=== PATIENT | male | born 1985 | race Hispanic/Latino ===

== ENCOUNTER 2018-12-06 04:48 | Inpatient (IN) | payer SELFPAY ==
[2018-12-06] MEDS ORDERED: ZOFRAN ONE (04:57)
[2018-12-06] MEDS ORDERED: NACL 0.9% 1000 ML 1,000 ML ONE ×2 (04:57→05:04)
[2018-12-06] MEDS ORDERED: ATIVAN ONE (04:57)
[2018-12-06] MEDS ORDERED: BENADRYL ONE (05:04)
[2018-12-06] MEDS ORDERED: ZOFRAN IV ONE (05:07)
[2018-12-06] MEDS ORDERED: NACL 0.9% 1000 ML 1,000 ML IV ONE ×3 (05:07→05:17)
[2018-12-06 05:22] LABS: Hematocrit 40.4 % (35.5-45.6); Mean Corpuscular HGB Conc 35 % (32-34); Mean Corpuscular Volume 86 fl (84-94); Platelet Count 340 K/mm3 (140-440); Red Cell Distribution Width 13.8 % (13.2-15.2)
[2018-12-06] MEDS ORDERED: BENADRYL IV ONE (05:22)
[2018-12-06] MEDS ORDERED: ATIVAN IV ONE ×2 (05:22→06:23)
[2018-12-06] MEDS ORDERED: ROCEPHIN/NS 2 GM/100 ML 2 GM/100 ML BAG IV ONE (05:23)
[2018-12-06] MEDS ORDERED: ZITHROMAX 500 MG in NACL 0.9% 250ML 250 ML IV ONE (05:24)
[2018-12-06 05:33] LABS: INR 1.11 (0.87-1.13)
[2018-12-06 05:43] LABS: Albumin 4.4 g/dL (3.9-5)
--- NOTE | 2018-12-06 06:08 | XRay Report ---
PROCEDURE: XR CHEST 1V AP TECHNIQUE: Chest radiograph single view. HISTORY: ams COMPARISONS: None . FINDINGS: No mediastinal shift. Cardiac silhouette is not enlarged. No pneumothorax, effusion, or focal pulmona ry opacity identified. No acute skeletal findings. IMPRESSION: No acute pulmonary finding identified. This document is electronically signed by Ronal Rodríguez MD., December 06 2018 06:06:39 AM ET
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
[2018-12-06 06:13] LABS: Benzodiazepines Screen,Urine PRESUMPTIVE NEGATIVE; Cocaine Screen,Urine PRESUMPTIVE NEGATIVE; Methadone Screen,Urine PRESUMPTIVE NEGATIVE; Opiate Screen,Urine PRESUMPTIVE NEGATIVE
[2018-12-06 06:15] LABS: Bacteria,Urine 3+ /HPF (Negative); Bilirubin,Urine NEG (Negative); Blood,Urine NEG (Negative); Color,Urine Amber (Yellow); Mucus,Urine 3+ /HPF; Sperm,Urine 1+ /HPF (NP)
[2018-12-06 06:25] LABS: Amphetamine Screen,Urine PRESUMPTIVE POSITIVE; Cannabinoid Screen,Urine PRESUMPTIVE POSITIVE
[2018-12-06 06:35] LABS: Basophils % (Manual) 0 % (0.0-1.8); Eosinophils % (Manual) 0 % (0.0-4.3); Platelet Estimate Consistent w Auto; RBC Morphology Normal; Total Cells Counted 100
--- NOTE | 2018-12-06 06:37 | Cat Scan Report ---
PROCEDURE: CT HEAD/BRAIN WO CON TECHNIQUE: Computerized tomography of the head was performed without contrast material. HISTORY: AMS COMPARISONS: None . FINDINGS: The ventricles, cisterns and sulci are within normal limits. No intra parenchymal or extra-axial mas s, hemorrhage, or mass effect. Javier and white-matter differentiation is within normal limits. Normal spherical shape of the globes. Paranasal sinuses and mastoid air cells are clear. No skull o r facial fracture visualized. IMPRESSION: No acute intracranial abnormality. This document is electronically signed by Ronal Rodríguez MD., December 06 2018 06:35:28 AM ET
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
[2018-12-06] MEDS ORDERED: D50W (25GM) Syringe IV PRN ×2 (08:00→23:19)
[2018-12-06] MEDS: D5W 1,000 ML IV SCH ×2 (08:20→18:50)
[2018-12-06] MEDS ORDERED: LOVENOX SUB-Q ONE (09:56)
[2018-12-06] MEDS ORDERED: PROTONIX IV ONE (09:56)
[2018-12-06] MEDS ORDERED: PROTONIX IV SCH (10:00)
[2018-12-06] MEDS ORDERED: LOVENOX SUB-Q SCH (10:00)
[2018-12-06] MEDS: LOVENOX SUB-Q SCH (10:00)
[2018-12-06 10:10] LABS: BUN/Creatinine Ratio 18; Blood Urea Nitrogen 22 mg/dL (9-20); Calcium 7.7 mg/dL (8.4-10.2); Hemolysis Index 6
--- NOTE | 2018-12-06 17:07 | Event Note ---
Date: 12/06/18 Patient was admitted to [facility] I haven't evaluated the patient patient is more alert and awake Confused and unable to give proper history History of depression seen psychiatrists in the past Denies suicidal thoughts or ideation Continue current management, Psych consult Monitor closely and adjust management as needed
[2018-12-06] MEDS: MAGIC MOUTHWASH PO SCH (21:05)
[2018-12-07] MEDS: D5W 1,000 ML IV SCH ×2 (03:54→14:12)
[2018-12-07 05:21] LABS: Basophils # (Auto) 0.1 K/mm3 (0.0-0.1); Basophils % (Auto) 0.6 % (0.0-1.8); Eosinophils # (Auto) 0.1 K/mm3 (0.0-0.4); Eosinophils % (Auto) 1.5 % (0.0-4.3); Hemoglobin 12.5 gm/dl (11.8-15.2); Lymphocytes # (Auto) 2.6 K/mm3 (1.2-5.4); Lymphocytes % (Auto) 29.5 % (13.4-35.0); Mean Corpuscular HGB Conc 35 % (32-34); Mean Corpuscular Volume 87 fl (84-94); Monocytes # (Auto) 0.7 K/mm3 (0.0-0.8); Platelet Count 212 K/mm3 (140-440); Red Blood Count 4.15 M/mm3 (3.65-5.03); Red Cell Distribution Width 14.4 % (13.2-15.2)
[2018-12-07 05:33] LABS: Alanine Aminotransferase 32 units/L (7-56); Albumin 3.4 g/dL (3.9-5); BUN/Creatinine Ratio 13; Blood Urea Nitrogen 10 mg/dL (9-20); Calcium 8.5 mg/dL (8.4-10.2); Hemolysis Index 3
[2018-12-07] MEDS ORDERED: K-DUR PO ONE (09:30)
[2018-12-07] MEDS: ROCEPHIN/NS 1 GM/50 ML 1 GM/50 ML BAG IV SCH (09:32)
[2018-12-07] MEDS: LOVENOX SUB-Q SCH (09:32)
[2018-12-07] MEDS: PROTONIX PO SCH (09:32)
[2018-12-07] MEDS: MAGIC MOUTHWASH PO SCH ×3 (09:32→22:10)
--- NOTE | 2018-12-07 11:19 | Progress Note ---
Assessment and Plan Assessment and plan: --Altered Level of consciousness; Drug-induced ,secondary to marijuana/amphetamine --Metabolic encephalopathy; present on admission Amphetamine induced, neurochecks, IV fluids --Lactic acidosis; multifactorial Closely monitor --Hypotension; resolved --Leukocytosis; rule out sepsis consistent with UTI Empiric antibiotics.Resolved --Possible UTI; antibiotics Follow cultures, supportive care --Rhabdomyolysis; CK levels trending down IV hydration, closely monitor function and CK levels --hypernatremia: Corrected --Hypoglycemia; resolved --Polysubstance abuse; advised the patient to quit Recreational drug use --DVT prophylaxis; Lovenox --Psych evaluation. Noted and appreciated --Monitor closely and adjust the management as needed Patient is stable to be transferred out of IMCU to medical floor Possible discharge home tomorrow if stable History Interval history: Patient seen and examined medical records reviewed Patient is more alert and awake, confused at times No new complaints Vital signs noted Hospitalist Physical - Constitutional Vitals: Temp Pulse Resp BP Pulse Ox 98.1 F 83 16 105/51 98 12/07/18 08:00 12/07/18 04:00 12/07/18 04:00 12/07/18 03:00 12/07/18 08:41 General appearance: Present: mild distress, well-nourished, other (confused at times) - EENT Eyes: Present: PERRL, EOM intact - Neck Neck: Present: supple, normal ROM - Respiratory Respiratory effort: normal Respiratory: bilateral: diminished, negative: rales, rhonchi, wheezing - Cardiovascular Rhythm: regular Heart Sounds: Present: S1 & S2 - Extremities Extremities: no ischemia, No edema - Abdominal General gastrointestinal: soft, non-tender, non-distended, normal bowel sounds - Integumentary Integumentary: Present: clear, warm - Psychiatric Psychiatric: appropriate mood/affect, other (confused at times) - Neurologic Neurologic: moves all extremities Results - Labs CBC & Chem 7: 12/07/18 03:52 12/07/18 03:52 Labs: Laboratory Last Values WBC 8.8 K/mm3 (4.5-11.0) 12/07/18 03:52 RBC 4.15 M/mm3 (3.65-5.03) 12/07/18 03:52 Hgb 12.5 gm/dl (11.8-15.2) 12/07/18 03:52 Hct 36.0 % (35.5-45.6) 12/07/18 03:52 MCV 87 fl (84-94) 12/07/18 03:52 MCH 30 pg (28-32) 12/07/18 03:52 MCHC 35 % (32-34) H 12/07/18 03:52 RDW 14.4 % (13.2-15.2) 12/07/18 03:52 Plt Count 212 K/mm3 (140-440) 12/07/18 03:52 Lymph % (Auto) 29.5 % (13.4-35.0) 12/07/18 03:52 [place] % (Auto) 8.0 % (0.0-7.3) H 12/07/18 03:52 Eos % (Auto) 1.5 % (0.0-4.3) 12/07/18 03:52 Baso % (Auto) 0.6 % (0.0-1.8) 12/07/18 03:52 Lymph # 2.6 K/mm3 (1.2-5.4) 12/07/18 03:52 [place] # 0.7 K/mm3 (0.0-0.8) 12/07/18 03:52 Eos # 0.1 K/mm3 (0.0-0.4) 12/07/18 03:52 Baso # 0.1 K/mm3 (0.0-0.1) 12/07/18 03:52 Add Manual Diff Complete 12/06/18 05:12 Total Counted 100 12/06/18 05:12 Seg Neutrophils % 60.4 % (40.0-70.0) 12/07/18 03:52 Seg Neuts % (Manual) 87.0 % (40.0-70.0) H 12/06/18 05:12 0 % 12/06/18 05:12 7.0 % (13.4-35.0) L 12/06/18 05:12 Reactive Lymphs % (Man) 0 % 12/06/18 05:12 6.0 % (0.0-7.3) 12/06/18 05:12 0 % (0.0-4.3) 12/06/18 05:12 0 % (0.0-1.8) 12/06/18 05:12 0 % 12/06/18 05:12 0 % 12/06/18 05:12 0 % 12/06/18 05:12 0 % 12/06/18 05:12 Nucleated RBC % Not Reportable 12/06/18 05:12 Seg Neutrophils # 5.3 K/mm3 (1.8-7.7) 12/07/18 03:52 Seg Neutrophils # Man 25.0 K/mm3 (1.8-7.7) H 12/06/18 05:12 Band Neutrophils # 0.0 K/mm3 12/06/18 05:12 2.0 K/mm3 (1.2-5.4) 12/06/18 05:12 Abs React Lymphs (Man) 0.0 K/mm3 12/06/18 05:12 1.7 K/mm3 (0.0-0.8) H 12/06/18 05:12 0.0 K/mm3 (0.0-0.4) 12/06/18 05:12 0.0 K/mm3 (0.0-0.1) 12/06/18 05:12 0.0 K/mm3 12/06/18 05:12 0.0 K/mm3 12/06/18 05:12 0.0 K/mm3 12/06/18 05:12 Blast Cells # 0.0 K/mm3 12/06/18 05:12 WBC Morphology Not Reportable 12/06/18 05:12 Hypersegmented Neuts Not Reportable 12/06/18 05:12 Hyposegmented Neuts Not Reportable 12/06/18 05:12 Hypogranular Neuts Not Reportable 12/06/18 05:12 Not Reportable 12/06/18 05:12 Not Reportable 12/06/18 05:12 Not Reportable 12/06/18 05:12 Not Reportable 12/06/18 05:12 Not Reportable 12/06/18 05:12 Not Reportable 12/06/18 05:12 Consistent w auto 12/06/18 05:12 Not Reportable 12/06/18 05:12 Plt Clumps, EDTA Not Reportable 12/06/18 05:12 Not Reportable 12/06/18 05:12 Not Reportable 12/06/18 05:12 Not Reportable 12/06/18 05:12 Plt Morphology Comment Not Reportable 12/06/18 05:12 RBC Morphology Normal 12/06/18 05:12 Dimorphic RBCs Not Reportable 12/06/18 05:12 Not Reportable 12/06/18 05:12 Not Reportable 12/06/18 05:12 Not Reportable 12/06/18 05:12 Not Reportable 12/06/18 05:12 Not Reportable 12/06/18 05:12 Not Reportable 12/06/18 05:12 Not Reportable 12/06/18 05:12 Not Reportable 12/06/18 05:12 Not Reportable 12/06/18 05:12 Not Reportable 12/06/18 05:12 Not Reportable 12/06/18 05:12 Not Reportable 12/06/18 05:12 Not Reportable 12/06/18 05:12 Not Reportable 12/06/18 05:12 Not Reportable 12/06/18 05:12 Not Reportable 12/06/18 05:12 Not Reportable 12/06/18 05:12 Not Reportable 12/06/18 05:12 Not Reportable 12/06/18 05:12 Acanthocytes (Spur) Not Reportable 12/06/18 05:12 Rouleaux Not Reportable 12/06/18 05:12 Not Reportable 12/06/18 05:12 Not Reportable 12/06/18 05:12 Not Reportable 12/06/18 05:12 Not Reportable 12/06/18 05:12 Hem Pathologist Commnt No 12/06/18 05:12 PT 14.0 Sec. (12.2-14.9) 12/06/18 05:12 INR 1.11 (0.87-1.13) 12/06/18 05:12 POC ABG pH 7.347 (7.35-7.45) L 12/06/18 05:23 POC ABG pCO2 44.0 (35-45) 12/06/18 05:23 POC ABG pO2 111 (80-105) H 12/06/18 05:23 POC ABG HCO3 24.1 (22-26 mml/L) 12/06/18 05:23 POC ABG Total CO2 25 (23-27mmol/L) 12/06/18 05:23 POC ABG O2 Sat 98 12/06/18 05:23 POC ABG Base Excess -2 ((-2) - (+3)mmol/L) 12/06/18 05:23 28 % 12/06/18 05:23 Sodium 140 mmol/L (137-145) 12/07/18 03:52 Potassium 3.3 mmol/L (3.6-5.0) L D 12/07/18 03:52 Chloride 104.4 mmol/L (98-107) 12/07/18 03:52 Carbon Dioxide 23 mmol/L (22-30) 12/07/18 03:52 16 mmol/L 12/07/18 03:52 BUN 10 mg/dL (9-20) 12/07/18 03:52 0.8 mg/dL (0.8-1.5) 12/07/18 03:52 Estimated GFR > 60 ml/min 12/07/18 03:52 13 % 12/07/18 03:52 Glucose 103 mg/dL (75-100) H 12/07/18 03:52 POC Glucose 143 (70-105) H 12/07/18 06:09 Lactic Acid 0.70 mmol/L (0.7-2.0) 12/06/18 09:37 Calcium 8.5 mg/dL (8.4-10.2) 12/07/18 03:52 Phosphorus 2.90 mg/dL (2.5-4.5) 12/07/18 03:52 Magnesium 2.10 mg/dL (1.7-2.3) 12/07/18 03:52 0.50 mg/dL (0.1-1.2) 12/07/18 03:52 AST 74 units/L (5-40) H 12/07/18 03:52 ALT 32 units/L (7-56) 12/07/18 03:52 57 units/L (35-129) 12/07/18 03:52 1522 units/L (55-170) H 12/06/18 05:12 < 0.010 ng/mL (0.00-0.029) 12/06/18 05:27 6.1 g/dL (6.3-8.2) L D 12/07/18 03:52 3.4 g/dL (3.9-5) L 12/07/18 03:52 1.3 % 12/07/18 03:52 [place] (Yellow) 12/06/18 05:56 Slightly-cloudy (Clear) 12/06/18 05:56 5.0 (5.0-7.0) 12/06/18 05:56 Ur Specific [place] 1.029 (1.003-1.030) 12/06/18 05:56 100 mg/dl mg/dL (Negative) 12/06/18 05:56 Neg mg/dL (Negative) 12/06/18 05:56 20 mg/dL (Negative) 12/06/18 05:56 Neg (Negative) 12/06/18 05:56 Neg (Negative) 12/06/18 05:56 Neg (Negative) 12/06/18 05:56 4.0 mg/dL (<2.0) 12/06/18 05:56 Ur Leukocyte Esterase Neg (Negative) 12/06/18 05:56 6.0 /HPF (0.0-6.0) 12/06/18 05:56 6.0 /HPF (0.0-6.0) 12/06/18 05:56 3+ /HPF (Negative) 12/06/18 05:56 3+ /HPF 12/06/18 05:56 1+ /HPF ([employer]) 12/06/18 05:56 Presumptive negative 12/06/18 05:56 Presumptive negative 12/06/18 05:56 Ur Barbiturates Screen Presumptive negative 12/06/18 05:56 Ur Phencyclidine Scrn Presumptive negative 12/06/18 05:56 Ur Amphetamines Screen Presumptive positive 12/06/18 05:56 U Benzodiazepines Scrn Presumptive negative 12/06/18 05:56 Presumptive negative 12/06/18 05:56 U Marijuana (THC) Screen Presumptive positive 12/06/18 05:56 Disclamer 12/06/18 05:56 Plasma/Serum Alcohol < 0.01 % (0-0.07) 12/06/18 05:12 Active Medications - Current Medications Current Medications: Generic Name Dose Route Start Last Admin Trade Name Freq PRN Reason Stop Dose Admin Dextrose 50 ml 12/06/18 23:19 D50w (25gm) Syringe IV PRN PRN Hypoglycemia Enoxaparin Sodium 40 mg 12/06/18 10:00 12/07/18 09:32 Lovenox SUB-Q 40 mg QDAY@1000 CUATE Administration Dextrose 1,000 mls @ 100 mls/hr 12/06/18 08:00 12/07/18 03:54 D5w IV 100 mls/hr DIRECT CUATE Administration Ceftriaxone Sodium 1 gm in 50 mls @ 100 mls/hr 12/07/18 10:00 12/07/18 09:32 Rocephin/Ns 1 Gm/50 Ml IV 100 mls/hr Q24HR CUATE Administration Protocol Lidocaine HCl 15 ml 12/06/18 20:00 12/07/18 09:32 Magic Mouthwash PO 15 ml TID CUATE Administration Pantoprazole Sodium 40 mg 12/07/18 10:00 12/07/18 09:32 Protonix PO 40 mg DAILY CUATE Administration
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
[2018-12-07] MEDS ORDERED: PROzac PO SCH (17:00)
[2018-12-07] MEDS ORDERED: MINIPRESS PO SCH (22:00)
[2018-12-07] MEDS: PROzac PO SCH (22:09)
[2018-12-08 06:28] LABS: Alanine Aminotransferase 31 units/L (7-56); Albumin 3.6 g/dL (3.9-5); BUN/Creatinine Ratio 10; Blood Urea Nitrogen 7 mg/dL (9-20); Calcium 8.6 mg/dL (8.4-10.2); Hemolysis Index 3
[2018-12-08] MEDS: MAGIC MOUTHWASH PO SCH (09:55)
[2018-12-08] MEDS: ROCEPHIN/NS 1 GM/50 ML 1 GM/50 ML BAG IV SCH (09:55)
[2018-12-08] MEDS: LOVENOX SUB-Q SCH (09:55)
[2018-12-08] MEDS: PROTONIX PO SCH (09:56)
[2018-12-08] MEDS: PROzac PO SCH (09:56)
--- NOTE | 2018-12-08 10:05 | Progress Note ---
Subjective - Reason for Consult Consult date: 12/08/18 Reason for consult: Psychiatry Follow-up - Chief Complaint Chief complaint: 'I had a good night" 33 y.o. white male who presented to the ER for AMS. Psychiatry was consulted to see the patient for depression and substance abuse. Today the patient was calm and cooperative during the assessment. He stated that he slept well last night. He stated that he will follow up with his psychiatrist in his home town. He denies SI/HI's and AVH's. He denies any side effects of his medications. Mental Status Exam - Vital signs Last Vital Signs Temp 97.9 F 12/08/18 05:54 Pulse 85 12/08/18 05:54 Resp 16 12/08/18 05:54 BP 109/62 12/08/18 05:54 Pulse Ox 99 12/07/18 22:30 - Exam Narrative exam: MSE: Appearance: calm, cooperative Behavior: regular eye contact Speech: regular rate and tone Mood: "okay" Affect: congruent to mood Thought Process: logical Thought Content: denies SI/HI's and AVH's Motor Activity: ambulatory Cognition: A/O x3 Insight: appropriate Judgment: appropriate Assessment and Plan Impression: Hx of Depression/Substance Abuse. PTSD. Today the patient was calm during the assessment. The patient was positive for marijauna and amphetamines. Recommendation/Plan: Continue Prozac 20 mg PO daily for depression/PTSD and Prazosin 1 mg PO HS for PTSD symptoms. Discussed possible suicidality/medication induced lynne with the patient reference Prozac, he verbalized understanding. psy sign off. Dispo: The patient can follow up with his psychiatrist in his local area once discharged. Will staff with Dr. Ashli Rasmussen.
--- NOTE | 2018-12-08 12:41 | Discharge Summary ---
Providers - Providers Date of Admission: 12/06/18 06:54 Date of discharge: 12/08/18 Attending physician: LOBITO NOBLES 12/06/18 17:15 psychiatry consult [Consult to Mental Health] [CONS] Routine Reason For Exam: Depression/drug abuse Place consult to:: [facility] [employer] equipment [employer] Notified:: roseanne Phone number called:: [phone] Was contact made?: No Time called:: 18:47 Comment:: no answer 12/07/18 11:28 Consult to Mental Health [CONS] Urgent Reason For Exam: Depression and Drug abuse Place consult to:: Uriel Notified:: Rissa Phone number called:: [phone] [facility] Reason for admission: altered level of consciousness Condition: Stable Pertinent studies: CT head without contrast no acute abnormalities Chest x-ray no acute abnormalities Hospital course: The patient was admitted with history of unresponsiveness and unable to give history, no family/contacts available 33-year-old male patient was brought to the emergency room by EMS. with history of confusion, uncontrolled tremors Violent shaking after using methamphetamine, patient was found rolling outside the motel where he was staying No other history available, Initial workup was consistent with lactic acidosis, acute kidney injury, hypoglycemia, hypotension ,rhabdomyolysis, leukocytosis, metabolic acidosis Drug screen positive for amphetamine and marijuana. Patient was admitted symptomatically managed, after 24 hours patient became more alert and awake Patient has history of HIV on antiretrovirals with traveling with a friend, and was using marijuana and Amphetamine, and patient does not remember what happened next Symptomatically managed, symptoms significantly improved CK levels trending down, acute kidney injury resolved, leukocytosis resolved Preoperative patient is alert awake oriented, Vital signs noted Hemodynamically and clinically stable at discharge Psych has evaluated the patient, and recommended medications for PTSD and depression Patient strongly advised to follow infectious diseases for his HIV needs, and prior psych for his psych Plan of care is reviewed with the patient and his friend at the bedside Discharge diagnosis; --Altered Level of consciousness; Drug-induced ,secondary to marijuana/amphetamine --Metabolic encephalopathy; present on admission Amphetamine induced, neurochecks, resolved --HIV; on antiretrovirals --Lactic acidosis; resolved --Hypotension; resolved --Leukocytosis; within normal limits --Possible UTI; received 3 days of antibiotics, Cultures negative --Rhabdomyolysis; CK levels trending down --hypernatremia:Hypoglycemia; resolved --History of PTSD. Evaluated by psych recommended medications --History of depression; no suicidal thoughts or ideation --Polysubstance abuse; advised the patient to quit Recreational drug use Patient is stable at discharge Disposition: DC-01 TO HOME OR SELFCARE Time spent for discharge: 32 min Core Measure Documentation - Palliative Care Palliative Care/ Comfort Measures: Not Applicable - Core Measures Any of the following diagnoses?: none Exam - Constitutional Vitals: Temp Pulse Resp BP Pulse Ox 97.9 F 85 16 109/62 99 12/08/18 05:54 12/08/18 05:54 12/08/18 05:54 12/08/18 05:54 12/07/18 22:30 General appearance: Present: no acute distress, well-nourished - EENT Eyes: Present: PERRL, EOM intact - Neck Neck: Present: supple, normal ROM - Respiratory Respiratory effort: normal Respiratory: bilateral: diminished, negative: rales, rhonchi, wheezing - Cardiovascular Rhythm: regular Heart Sounds: Present: S1 & S2 - Extremities Extremities: no ischemia, No edema - Abdominal General gastrointestinal: Present: soft, non-tender, non-distended, normal bowel sounds - Integumentary Integumentary: Present: clear, warm - Musculoskeletal Musculoskeletal: strength equal bilaterally - Psychiatric Psychiatric: appropriate mood/affect, cooperative - Neurologic Neurologic: CNII-XII intact, moves all extremities Plan Activity: no restrictions Diet: regular Additional Instructions: f/u with your Infectious Diseases specialist in 1-2 weeks. f/u with your private psychiatrist in 1 week. Advised to quit recreational drug use Follow up with: BRANDY CARRERA MD [Primary Care Provider] - 3-5 Days Prescriptions: Prazosin [Minipress] 1 mg PO HS #14 capsule FLUoxetine [PROzac] 20 mg PO QDAY #14 capsule
[2018-12-08 22:11] VITALS: BP 119/67
== END 2018-12-08 22:15 | disposition home or self-care (01) | DRG 917 ==
LOC: ED 04:48 → IMCU 06:54 → 3A 12-07 18:40
PROVIDERS: ADMIT Internal Medicine; ATTEND Internal Medicine
PROC: 4A033R1 Measurement of Arterial Saturation, Peripheral, Percutaneous Approach (ICD-10-PCS; principal; 2018-12-06)
DX: T43.621A Poisoning by amphetamines, accidental (unintentional), initial encounter (principal); G92 Toxic encephalopathy; E87.2 Acidosis; M62.82 Rhabdomyolysis; E87.0 Hyperosmolality and hypernatremia; N17.9 Acute kidney failure, unspecified; Z21 Asymptomatic human immunodeficiency virus [HIV] infection status; I95.9 Hypotension, unspecified; F32.9 Major depressive disorder, single episode, unspecified; F15.129 Other stimulant abuse with intoxication, unspecified; R45.1 Restlessness and agitation; F43.10 Post-traumatic stress disorder, unspecified; X58.XXXA Exposure to other specified factors, initial encounter; E16.2 Hypoglycemia, unspecified; F15.10 Other stimulant abuse, uncomplicated; F12.10 Cannabis abuse, uncomplicated; Z88.0 Allergy status to penicillin; Y93.89 Activity, other specified; Y92.098 Other place in other non-institutional residence as the place of occurrence of the external cause; Y99.8 Other external cause status; Z71.51 Drug abuse counseling and surveillance of drug abuser
CPT/HCPCS: 36415; 70450; 71045; 80048; 80053; 80307; 80320; 81001; 82140; 82550; 82803; 82962; 83735; 84100; 84484; 85025; 85610; 87040; 87086; 93005; 93010; 94760; G0378; C9113; G0480; J0456; J0696; J1200; J1650; J2060; J2405; J7030; J7050; J7070